=== PATIENT | female | born 1930 | race Caucasian/White ===

== ENCOUNTER → 2016-11-22 | Outpatient (CLI) | payer MEDICARE, BC ==
[~2016-11-22] MED LIST: AGGRENOX CAPSUL1 CAP PO; AMOXICILLIN875 MG PO; ANTACID200 MG PO; ASPIR-LOW81 MG PO; ASPIRIN 81M81 MG/TA2 PO; ASPIRIN E.C. 8181 MG PO; B-121000 MCG PO; BENICAR 20MG TA20 MG PO; BENICAR20 MG PO; BENICAR40 MG PO; BENICAR5 MG PO; CALCIUM 500500 MG PO; CALCIUM 600-D 61 TAB PO; CALCIUM 600600 M2 PO; CALCIUM CARB500 MG PO; CALCIUM CARBON500 M1 PO; CARDIZEM CD 18180 MG PO; CARTIA XT180 MG PO; CEFTIN 250250 MG/TAB PO; CELEXA PO; CELEXA10 MG PO; CENTRUM SILVER1 CTB PO; CENTRUM SILVER1 TA1 PO; CITALOPRAM20 MG PO; COLACE 100100 MG/CAP PO; COMBIRESP IH; COUMADIN 2MG2 MG/TAB PO; ELDERBERRY200 MG; ELIQUIS 2.5 PO; ELIQUIS 5MG PO; EXELON 1.5MG1.5 MG PO; EXELON3 MG PO; FISH OIL CONC1000 MG PO; FISH OIL500 MG PO; IPRATROPIUM BROM3 M1 IH; LASIX 20MG TABL20 MG PO; LEVOTHYROXINE0.05 M1 PO; LEVOXYL0.05 MG PO; LEXAPRO 5MG5 MG PO; LEXAPRO20 MG PO; LOVASTATIN10 MG PO; LOVASTATIN20 MG PO; MEVACOR 20M20 MG/TAB PO; MIRALAX510G PO; MULTAQ400 MG PO; MVI; NITROQUICK0.4 MG SL; NITROSTAT0.4 MG/TAB SL; OMEPRAZOLE20 MG PO; PERSANTINE PO; PERSANTINE75 MG PO; PRILOSEC 20MG20 MG PO; RECLAST5 MG/1001 IV; RT ADVAIR HFA 1112 G IH; RT SPIRIVA18 MCG IH; ST. JOSEPH81 M2 PO; TYLENOL 325MG325 MG PO; VITAMIN B COMPL1 SGL PO; VITAMIN D; VITAMIN D PO; VITAMIN D1000 IU PO; VITAMIN E100 I3 PO; VITAMIN E1000 U/CAP PO; VITAMIN E200 I1 PO; ZOCOR 10MG10 MG PO; ZOLOFT 50MG50 MG PO; levoxyl PO
[2016-11-22 13:48] LABS: HEMATOCRIT 38.6 % (37.0-47.0)
[2016-11-22 14:03] LABS: ALBUMIN 4.2 gm/dL (3.5-5.0); CALCIUM 9.5 mg/dL (8.4-10.2); CREATININE, serum 1.99 mg/dL (0.52-1.25); PHOSPHOROUS 4.2 mg/dL (2.5-4.5); POTASSIUM 4.4 mmol/L (3.4-5.0)
[2016-11-24 21:47] LABS: PROT-CREAT RATIO, URINE 0.1 (())
== END ==
LOC: COL.LAB 12:48
PROVIDERS: Internal Medicine Nephrology
DX: Z01.89 Encounter for other specified special examinations (principal)

== ENCOUNTER 2016-12-08 17:07 | Observation (INO) | payer MEDICARE, BC ==
[~2016-12-08] VITALS: Ht 157.6 cm; Wt 56.0 kg
[~2016-12-08 17:07] MED LIST changes: -ASPIRIN E.C. 8181 MG PO; -B-121000 MCG PO; -CALCIUM CARB500 MG PO; -EXELON 1.5MG1.5 MG PO; -EXELON3 MG PO; -NITROSTAT0.4 MG/TAB SL
[2016-12-08 17:46] LABS: BASO # 0.1 (0.0-0.2); BASO % 0.8 % (0.0-2.0); EOS # 0.1 (0.0-0.7); EOS % 1.2 % (0-4.0); GRAN # 4.3 (1.4-6.5); HEMATOCRIT 39.4 % (37.0-47.0); HEMOGLOBIN 12.8 g/dl (12.5-16.0); LYMPH # 2.4 (1.2-3.4); LYMPH % 30.6 % (20.0-51.0); MEAN CELL VOLUME 94 fl (80.0-100.0); MEAN CORPUSCULAR HEMOGLOBIN 30 pg (27.0-31.0); MEAN CORPUSCULAR HGB CONC 33 g/dl (33.0-37.0); MONO # 0.9 (0.1-0.6); MONO % 12.1 % (1.7-9.3); PLATELET COUNT 181 K/mm3 (130-400); RED BLOOD COUNT 4.21 M/mm3 (4.10-5.30); REDCELL DISTRIBUTION WIDTH-CV 13.4 % (11.5-14.5); WHITE BLOOD COUNT 7.7 K/mm3 (4.8-10.8)
[2016-12-08 17:49] LABS: PROTHROMBIN TIME 11.5 SECONDS (9.7-12.8)
[2016-12-08 17:52] LABS: PARTIAL THROMBOPLASTIN TIME 33.7 SECONDS (26.0-37.0)
[2016-12-08 17:55] LABS: ADJUSTED CALCIUM 9.3 mg/dL (8.4-10.2); ALANINE AMINOTRANSFERASE 11 U/L (9-52); ALBUMIN 4.2 gm/dL (3.5-5.0); ALKALINE PHOSPHATASE 58 U/L (50-136); ANION GAP 11 mmol/L (7-16); BILIRUBIN,TOTAL 0.8 mg/dL (0.0-1.0); BLOOD UREA NITROGEN 14 mg/dL (7-17); CALCIUM 9.5 mg/dL (8.4-10.2); CARBON DIOXIDE 29 mmol/L (22-30); CHLORIDE 101 mmol/L (98-107); CREATININE, serum 1.51 mg/dL (0.52-1.25); GLUCOSE 102 mg/dL (74-106); LIPASE 134 U/L (23-300); POTASSIUM 4.1 mmol/L (3.4-5.0); SODIUM 141 mmol/L (137-145); TOTAL PROTEIN 7.4 gm/dL (6.4-8.2)
[2016-12-08 18:06] LABS: B-TYPE NATRIURETIC PEPTIDE 1560 pg/mL (0-450)
[2016-12-08 18:26] LABS: TROPONIN-I < 0.012 ng/mL (0.000-0.034)
[2016-12-08] MEDS ORDERED: EXELON 1.5MG1.5 MG PO (19:32)
[2016-12-08] MEDS ORDERED: EXELON3 MG PO (19:33)
[2016-12-08 20:41] VITALS: BP 155/44; PULSE 64; TEMP 97.8
[2016-12-08] MEDS ORDERED: CALCIUM CARB500 MG PO (20:56)
[2016-12-08] MEDS ORDERED: B-121000 MCG PO (20:57)
[2016-12-08 22:48] VITALS: BP 141/50; PULSE 64; TEMP 98.3
[2016-12-09] VITALS (12 sets, daily range): BP systolic 100–156; BP diastolic 35–73; PULSE 57–88; TEMP 97.8–98.9
[2016-12-10 00:27] VITALS: BP 144/64; PULSE 64; TEMP 98
[2016-12-10 02:50] VITALS: BP 117/50; PULSE 69; TEMP 98.7
[2016-12-10 07:14] VITALS: BP 125/48; PULSE 56; TEMP 98.3
[2016-12-10] MEDS ORDERED: NITROSTAT0.4 MG/TAB SL (09:51)
[2016-12-10] MEDS ORDERED: ASPIRIN E.C. 8181 MG PO (09:52)
== END 2016-12-10 10:30 | disposition home or self-care (01) ==
LOC: COL.ER 17:07 → MEDICAL 19:35
PROVIDERS: Emergency Medicine; Nurse Practitioner Family
DX: R07.89 Other chest pain (principal); I08.0 Rheumatic disorders of both mitral and aortic valves; I13.0 Hypertensive heart and chronic kidney disease with heart failure and stage 1 through stage 4 chronic kidney disease, or unspecified chronic kidney disease; N18.9 Chronic kidney disease, unspecified; I50.9 Heart failure, unspecified; J44.9 Chronic obstructive pulmonary disease, unspecified; I48.91 Unspecified atrial fibrillation; E03.9 Hypothyroidism, unspecified; F03.90 Unspecified dementia, unspecified severity, without behavioral disturbance, psychotic disturbance, mood disturbance, and anxiety
CPT/HCPCS: 99223-AI; 99233-AI; A9502; G0378; J1644; J2785; J7030

== ENCOUNTER 2017-08-29 07:59 | Outpatient (CLI) | payer MEDICARE, BC ==
[~2017-08-29] VITALS: Ht 157.5 cm; Wt 50.0 kg
[~2017-08-29 07:59] MED LIST changes: +ASPIRIN E.C. 8181 MG PO; +B-121000 MCG PO; +CALCIUM CARB500 MG PO; +EXELON 1.5MG1.5 MG PO; +EXELON3 MG PO; +NITROSTAT0.4 MG/TAB SL; +VITAMIN D31000 I1 PO
[2017-08-29 08:40] VITALS: BP 164/63; PULSE 61; TEMP 98
[2017-08-29] MEDS ORDERED: ELIQUIS 2.5 PO (08:47)
[2017-08-29 09:51] VITALS: BP 158/70; PULSE 65; TEMP 97.8
[2017-08-31 20:30] LABS: ADRENOCORTICOTROPIC HORMONE 38 pg/mL (())
== END 2017-08-29 10:15 | disposition home or self-care (01) ==
LOC: EUO 07:59
PROVIDERS: Internal Medicine Interventional Cardiology
DX: I95.9 Hypotension, unspecified (principal)
CPT/HCPCS: J0834

== ENCOUNTER 2017-09-16 09:03 | Day surgery (SDC) | payer MEDICARE, BC ==
[~2017-09-16] VITALS: Ht 157.6 cm; Wt 48.0 kg
[2017-09-16 09:42] LABS: HEMATOCRIT 44.2 % (37.0-47.0); MEAN CELL VOLUME 96 fl (80.0-100.0); MEAN CORPUSCULAR HEMOGLOBIN 30 pg (27.0-31.0); MEAN CORPUSCULAR HGB CONC 32 g/dl (33.0-37.0); MEAN PLATELET VOLUME 9.2 fl (7.4-10.4); PLATELET COUNT 254 K/mm3 (130-400); RED BLOOD COUNT 4.63 M/mm3 (4.10-5.30); REDCELL DISTRIBUTION WIDTH-CV 13.9 % (11.5-14.5)
[2017-09-16 09:44] LABS: INR 1.1 (0.8-3.0); PROTHROMBIN TIME 12.9 SECONDS (9.7-12.8)
[2017-09-16 09:54] LABS: CALCIUM 10.2 mg/dL (8.4-10.2); CREATININE, serum 1.35 mg/dL (0.52-1.25); POTASSIUM 3.7 mmol/L (3.4-5.0)
[2017-09-16 09:56] VITALS: BP 142/55; PULSE 66; TEMP 97.9
[2017-09-16 13:35] VITALS: BP 167/78; PULSE 68
[2017-09-16 15:00] VITALS: BP 156/65; PULSE 68; TEMP 97.9
[2017-09-16 16:27] VITALS: BP 155/56; PULSE 68; TEMP 97.9
[2017-09-16 20:06] VITALS: BP 155/61; PULSE 79; TEMP 98
[2017-09-17 00:51] VITALS: BP 141/61; PULSE 70; TEMP 98.6
[2017-09-17 04:59] VITALS: BP 150/80; PULSE 78; TEMP 98.3
[2017-09-17 09:29] VITALS: BP 115/49; PULSE 77; TEMP 98.4
[2017-09-17] MEDS ORDERED: CEPHALEXIN500 M1 PO (10:58)
== END 2017-09-17 13:00 | disposition home or self-care (01) ==
LOC: MEDICAL 09:03 → COL.CAR 09:03
PROVIDERS: Internal Medicine Interventional Cardiology
DX: I49.5 Sick sinus syndrome (principal); R00.1 Bradycardia, unspecified; I48.3 Typical atrial flutter; I12.9 Hypertensive chronic kidney disease with stage 1 through stage 4 chronic kidney disease, or unspecified chronic kidney disease; N18.9 Chronic kidney disease, unspecified; Z88.2 Allergy status to sulfonamides; Z88.1 Allergy status to other antibiotic agents; Z79.01 Long term (current) use of anticoagulants; Z80.3 Family history of malignant neoplasm of breast; Z80.9 Family history of malignant neoplasm, unspecified; G47.33 Obstructive sleep apnea (adult) (pediatric); Z86.73 Personal history of transient ischemic attack (TIA), and cerebral infarction without residual deficits; J44.9 Chronic obstructive pulmonary disease, unspecified; E03.9 Hypothyroidism, unspecified
CPT/HCPCS: OP; J0690; J2250; J3010; J7030

== ENCOUNTER → 2017-11-14 | Outpatient (CLI) | payer MEDICARE, BC ==
[~2017-11-14] MED LIST changes: +CEPHALEXIN500 M1 PO
== END ==
LOC: COL.RAD 11:55
DX: R10.13 Epigastric pain (principal)
CPT/HCPCS: Q9967

== ENCOUNTER → 2017-12-05 | Outpatient (CLI) | payer MEDICARE, BC ==
[2017-12-05 14:41] LABS: ALBUMIN 3.7 gm/dL (3.5-5.0); CALCIUM 9.7 mg/dL (8.4-10.2); CREATININE, serum 1.41 mg/dL (0.52-1.25); PHOSPHOROUS 4.5 mg/dL (2.5-4.5); POTASSIUM 4.3 mmol/L (3.4-5.0)
== END ==
LOC: COL.LAB 14:09
PROVIDERS: Internal Medicine Nephrology
DX: N18.3 Chronic kidney disease, stage 3 (moderate) (principal)